=== PATIENT | female | born 1990 | race Caucasian/White ===

== ENCOUNTER 2020-04-14 00:01 | Inpatient (IN) | payer OTHER ==
[~2020-04-14] VITALS: Ht 170.2 cm; Wt 142.0 kg
--- OUTSIDE RECORDS SUMMARY | ~2020-04-14 | XMS | Encounter Summary ---
Demographics + + + | Address | [address] | | | [place] [address] | + + + | Home Phone | | + + + | Preferred Language | Unknown | + + + | Marital Status | Single | + + + | Nondenominational Affiliation | Unknown | + + + | Race | White | + + + | Ethnic Group | Not or | + + + Author + + + | Author | [facility] | | | and [place] | + + + | Organization | [facility] | | | and [place] | + + + | Address | Unknown | + + + | Phone | Unavailable | + + + Support + + + + + | Name | Relationship | Address | Phone | + + + + + | Lima Ireland | ECON | [address] | | | | | [place] | | | | | [address] | | + + + + + Care Team Providers + +------+ + | Care Orchestra Leader Name | Role | Phone | + +------+ + | Lana Hess PA-C | PCP | | + +------+ + Encounter Details +--------+ + + + + | Date | Type | Department | Care Team | Description | +--------+ + + + + | / | Abstract | [facility] | Vernon Garcia | Palpitations | | 2012 | | CARDIOLOGY [address] | MD Chaim [address] | (Primary Dx); | | | | [place], | [address] [place] | Chronic nausea; | | | | [place] [address] | [place] [address] | Chest pressure; SOB | | | | [phone] | [phone] | (shortness of | | | | | | breath); Abdominal | | | | | | pain; Depression | | | | | | with anxiety; | | | | | | Diarrhea; PVC's | | | | | | (premature | | | | | | ventricular | | | | | | contractions); Sinus | | | | | | arrhythmia | +--------+ + + + + Social History + + + +--------+------+ | Tobacco Use | Types | Packs/Day | Years | Date | | | | | Used | | + + + +--------+------+ | Current Every Day | Cigarettes | 0.5 | | | | Smoker | | | | | + + + +--------+------+ + +---+---+---+ | Smokeless Tobacco: | | | | | Never Used | | | | + +---+---+---+ + + +---------+ + | Alcohol Use | Drinks/Week | oz/Week | Comments | + + +---------+ + | Yes | | | social | + + +---------+ + + + + | Sex Assigned at | Date Recorded | | | | + + + | Not on file | | + + + documented as of this encounter Plan of Treatment Not on filedocumented as of this encounter Visit Diagnoses + + | Diagnosis | + + | Palpitations - Primary | + + | Chronic nausea Nausea alone | + + | Chest pressure Other chest pain | + + | SOB (shortness of breath) Shortness of breath | + + | Abdominal pain Abdominal pain, unspecified site | + + | Depression with anxiety Dysthymic disorder | + + | Diarrhea | + + | PVC's (premature ventricular contractions) Other premature beats | + + | Sinus arrhythmia Other specified cardiac dysrhythmias | + + documented in this encounter"
--- OUTSIDE RECORDS SUMMARY | ~2020-04-14 | XMS | Clinical Summary ---
Demographics + + + | Address | [address] | | | [place] [address] | + + + | Home Phone | | + + + | Preferred Language | Unknown | + + + | Marital Status | Single | + + + | Sikhism Affiliation | Unknown | + + + | Race | White | + + + | Ethnic Group | Not or | + + + Author + + + | Author | [facility] | | | and [place] | + + + | Organization | [facility] | | | and [...] [place] | | | | | [address] | | + + + + + Care Team Providers + +------+ + | Care Front Services Agent Name | Role | Phone | + +------+ + | Lana Hess PA-C | PCP | | + +------+ + Allergies + + + + + + | Active Allergy | Reactions | Severity | Noted | Comments | | | | | Date | | + + + + + + | Hydrocodone | Nausea And Vomiting | High | 09/18/19 | | | | | | 13 | | + + + + + + Medications + + + +---------+------+------+-------+ | Medication | Sig | Dispensed | Refills | Star | End | Statu | | | | | | t | Date | s | | | | | | Date | | | + + + +---------+------+------+-------+ | promethazine | Take 25 mg by mouth | | 0 | | | Activ | | (PHENERGAN) 25 mg | every 6 hours as | | | | | e | | tablet | needed. | | | | | | + + + +---------+------+------+-------+ | omeprazole | Take 20 mg by mouth | | 0 | | | Activ | | (PRILOSEC) 20 mg | every morning | | | | | e | | capsule | (before breakfast). | | | | | | + + + +---------+------+------+-------+ Active Problems + + + | Problem | Noted Date | + + + | Palpitations | 09/18/2012 | + + + | Chronic nausea | 09/18/2012 | + + + | Chest pressure | 09/18/2012 | + + + | SOB (shortness of breath) | 09/18/2012 | + + + | Abdominal pain | 09/18/2012 | + + + + + | Overview: Holter Monitor 08/30/12 | + + + + + | Depression with anxiety | 09/18/2012 | + + + | Diarrhea | 09/18/2012 | + + + | PVC's (premature ventricular contractions) | 09/18/2012 | + + + | Sinus arrhythmia | 09/18/2012 | + + + Family History + +------+--------+ + | Relation | Name | Status | Comments | + +------+--------+ + | Brother | | Alive | | + +------+--------+ + | Brother | | Alive | | + +------+--------+ + | Father | | Alive | DM | + +------+--------+ + | Mother | | Alive | | + +------+--------+ + | Sister | | Alive | | + +------+--------+ + | Sister | | Alive | | + +------+--------+ + Social History + + + +--------+------+ | Tobacco Use | Types | Packs/Day | Years | Date | | | | | Used | | + + + +--------+------+ | Current Every Day | Cigarettes | 0.5 | 3 | | | Smoker | | | | | + + + +--------+------+ + +---+---+---+ | Smokeless Tobacco: | | | | | Never Used | | | | + +---+---+---+ + + +---------+ + | Alcohol Use | Drinks/Week | oz/Week | Comments | + + +---------+ + | Yes | | | once a week, two | | | | | drinks | + + +---------+ + + + + | Sex Assigned at | Date Recorded | | | | + + + | Not on file | | + + + Last Filed Vital Signs + + + + + | Vital Sign | Reading | Time Taken | Comments | + + + + + | Blood Pressure | 110/72 | 11/21/2012 3:13 PM | | | | | PDT | | + + + + + | Pulse | 68 | 11/21/2012 3:13 PM | Regular | | | | PDT | | + + + + + | Temperature | - | - | | + + + + + | Respiratory Rate | 14 | 11/21/2012 3:13 PM | | | | | PDT | | + + + + + | Oxygen Saturation | - | - | | + + + + + | Inhaled Oxygen | - | - | | | Concentration | | | | + + + + + | Weight | 96.6 kg (213 lb) | 11/21/2012 3:13 PM | | | | | PDT | | + + + + + | Height | 170.2 cm (5' 7") | 11/21/2012 3:13 PM | | | | | PDT | | + + + + + | Body Mass Index | 33.36 | 11/21/2012 3:13 PM | | | | | PDT | | + + + + + Plan of Treatment + + +-------+ + | Health Maintenance | Due Date | Last | Comments | | | | Done | | + + +-------+ + | Vaccine: | | | | | Dtap/Tdap/Td (1 - | 1 | | | | Tdap) | | | | + + +-------+ + | Cervical Cancer | | | | | Screening (Pap) | 3 | | | + + +-------+ + | Vaccine: Influenza | | | | | (#1) | 0 | | | + + +-------+ + Results Not on filefrom Last 3 Months Insurance + +--------+ +--------+-------+---------+------+ | Payer | Benefi | Subscriber | Effect | Phone | Address | Type | | | t Plan | ID | shahnaz | | | | | | / | | Dates | | | | | | Group | | | | | | + +--------+ +--------+-------+---------+------+ | [employer] | FIRST | [id number] | | | | PPO | | | CHOICE | | 012-Pr | | | | | | OTHER | | esent | | | | + +--------+ +--------+-------+---------+------+ + +--------+ +--------+ + + | Guarantor Name | Accoun | Relation to | Date | Phone | Billing Address | | | t Type | Patient | of | | | | | | | | | | + +--------+ +--------+ + + | Mariam Ireland | Person | Self | [birth year] | [address] | | | al/Fam | | 1989 | [phone] | [address], | | | [place] | | | [address] (Home) | [place] [address] | + +--------+ +--------+ + + | Mariam Ireland | Person | Self | [birth year] | | [address] | | | al/Fam | | 1989 | [address], | | | [place] | | | [address] (Home) | [place] [address] | | | | | | [phone] | | | | | | | 0 (Work) | | + +--------+ +--------+ + + Advance Directives + + + + + | Type | Date Recorded | Patient | Explanation | | | | [employer] | | + + + + + | Power of | | | | | Spot Facer | | | | + + + + + | Advance | | | | | Directive | | | | + + + + +
--- OUTSIDE RECORDS SUMMARY | ~2020-04-14 | XMS | Encounter Summary ---
Demographics + + + | Address | [address] | | | [place] [address] | + + + | Home Phone | | + + + | Preferred Language | Unknown | + + + | Marital Status | Single | + + + | Advent Affiliation | Unknown | + + + | Race | White | + + + | Ethnic Group | Not or | + + + Author + + + | Author | [facility] | | | and [place] | + + + | Organization | [facility] | | | and [...] [place] | | | | | [address] | | + + + + + Care Team Providers + +------+ + | Care Barrel Lathe Operator Inside Name | Role | Phone | + +------+ + | Lana Hess PA-C | PCP | | + +------+ + Reason for Referral Diagnostic/Screening (Routine) +--------+--------+ + + + + | Status | Reason | Specialty | Diagnoses / | Referred By | Referred To | | | | | Procedures | Contact | Contact | +--------+--------+ + + + + | Closed | | Radiology | Diagnoses | [place], | [facility] | | | | | | Vernon | Imaging [address] | | | | | Palpitations | MD Chaim | [address] | | | | | Other | [address] | [address] [place] | | | | | chest pain | St [place] | [place], [place] | | | | | Procedures | [place] | [address] | | | | | ECHO | [address] | Phone: | | | | | Complete | Phone: | | | | | | | [phone] | Fax: | | | | | | Fax: | | | | | | | [phone] | | +--------+--------+ + + + + Encounter Details +--------+ + + + + | Date | Type | Department | Care Team | Description | +--------+ + + + + | 10/03/ | Hospital | [facility] | Vernon Garcia | Palpitations; | | 2012 - | Encounter | MED CTR XRAY [address] | MD Chaim [address] | Other chest pain | | | | [place] | [address] [place] | | | 10/05/ | | [place] [address] | [place] [address] | | | 2012 | | [phone] | [phone] | | | | | | | | +--------+ + + + + Social [...] + + documented as of this encounter Medications at Time of Discharge + + + +---------+--------+ + | Medication | Sig | Dispensed | Refills | Start | End Date | | | | | | Date | | + + + +---------+--------+ + | promethazine | Take 25 mg by mouth | | 0 | | | | (PHENERGAN) 25 mg | every 6 hours as | | | | | | tablet | needed. | | | | | + + + +---------+--------+ + documented as of this encounter Plan of Treatment Not on filedocumented as of this encounter Procedures + +--------+ + + + | Procedure Name | Priori | Date/Time | Associated Diagnosis | Comments | | | ty | | | | + +--------+ + + + | ECHO COMPLETE | Routin | 10/03/2012 | Palpitations | Results for this | | | e | 11:49 AM | Other chest pain | procedure are in the | | | | PST | | results section. | + +--------+ + + + documented in this encounter Results ECHO Complete (10/03/2012 11:49 AM PST) + + | Specimen | + + | | + + + + + | Narrative | Performed At | + + + | [facility] | [place] | | Department [address] [facility] [address] | [facility] | | [ rep [address]] [ rep [facility] | | [facility]] Signed | - IMAGING | | | | | Patient Name: ASHLEE IRELAND Physician: | | | TAYA : 1990 Age: 22 Sex: F Unit #: [id number] | | | Exam Date: 10/03/12 Location: [facility] | | | Report #: [id number] Page: | | | %(RAD)RES..mtdd.print.filter("pg") of %(RAD) | | | RES..mtdd.print.filter("tpg") | | | | | | Accession Number: [id number] | | | E C H O C A R D I O G R A P H Y R E P O R T | | | HEIGHT: 5'7" WEIGHT: 205# | | | LENS MAKER: AP YANG DR: CASI BEAN DR: | | | CASI DIAGNOSIS: PALPITATIONS AND CHEST PAIN | | | | | | M E A S U R E M E N T S | | | Aortic Root: 31 mm LV | | | Diameter-diastole: 49 mm Aortic Cusp Sep: 22 mm | | | LV Diameter--systole: 33 mm LA: | | | 30 mm Fractional Shortenin % | | | IVS--diastole: 8 mm PFV Aortic Valve: | | | IVS--systole: 13 mm MPG Mitral | | | Valve: mmHg LVPW--diastole: 9 mm | | | PFV TR Jet: 2.06 m/s LVPW--systole: | | | 15 mm RA/RV PP mmHg | | | | | | | | | ECHOCARDIOGRAM REPORT, 10/03/2012 REFERRING: S. | | | Chaim Garcia MD INDICATION: CHEST PAIN, PALPITATIONS. | | | TECHNICAL: Quality of study is good. This is a complete | | | transthoracic echocardiogram including 2D, M- mode, Doppler, and | | | color flow Doppler analysis. HEMODYNAMICS: Patient was in | | | underlying sinus rhythm throughout the procedure with a ventricular | | | rate in the 70s. Blood pressure is 111/66 at the time of the | | | study. RESULTS: CHAMBERS: The left ventricle | | | is of normal end diastolic and end systolic dimensions with normal | | | wall thickness and regional wall motion. LVEF is calculated at 59%. | | | Bilateral atria are of normal size. Right ventricle is of normal | | | size and systolic function with normal wall thickness. | | | VALVES: Aortic valve is a normal trileaflet valve with good opening. | | | There is no stenosis or insufficiency noted. Mitral valve is | | | normal without any thickening or prolapse. There is no | | | regurgitation seen. Tricuspid valve is normal with trace | | | insufficiency and a peak velocity of 2 meters per second consistent | | | with normal right sided pressures. Pulmonic valve is normal. | | | DIASTOLOGY: Diastolic parameters are within normal limits. | | | MISCELLANEOUS: Aortic root measures at 31 mm. Pericardium is | | | normal without any pericardial effusion. IVC is normal. | | | IMPRESSION: 1. NORMAL LEFT VENTRICULAR SIZE AND SYSTOLIC FUNCTION | | | WITH LVEF OF 59%. 2. NO SIGNIFICANT VALVULAR DISEASE NOTED. | | | 3. NORMAL RIGHT SIDED PRESSURES. 4. NORMAL LEFT | | | VENTRICULAR DIASTOLIC FUNCTION. Dictated Date/Time: | | | 10/03/2012 11:49 Transcribed Date/Time: 10/03/2012 12:03 | | | Consumer Analyst: <<Signature on File>> | | | S | | | Chaim Garcia MD10/03/12 2160 <Electronically signed by S S. | | | Casi MOCK> S Chaim Garcia MD 10/03/12 4509 | | | Consumer Analyst: Jia Sarsolktcmisu76/20/13 1203 S | | | Chaim Garcia MD | | + + + + + + + + | Performing | Address | City/State/Zipcode | Phone Number | | Organization | | | | + + + + + | [facility] | [address] | [place] | [phone] | | [facility] | | [address] | | | - IMAGING | | | | + + + + + documented in this encounter Visit Diagnoses + + | Diagnosis | + + | Palpitations | + + | Other chest pain | + + documented in this encounter
--- OUTSIDE RECORDS SUMMARY | ~2020-04-14 | XMS | Encounter Summary ---
Demographics + + + | Address | [address] | | | [place] [address] | + + + | Home Phone | | + + + | Preferred Language | Unknown | + + + | Marital Status | Single | + + + | Tenriism Affiliation | Unknown | + + + | Race | White | + + + | Ethnic Group | Not or | + + + Author + + + | Author | [facility] | | | and [place] | + + + | Organization | [facility] | | | [...] [place] | | | | | [address] | | + + + + + Care Team Providers + +------+ + | Care Water Filter Cleaner Name | Role | Phone | + +------+ + | Lana Hess PA-C | PCP | | + +------+ + Reason for Visit +---------+ + | Reason | Comments | +---------+ + | Results | ECHO, EVENT MONITOR, TREADMILL TEST | +---------+ + Encounter Details +--------+---------+ + + + | Date | Type | Department | Care Team | Description | +--------+---------+ + + + | 11/21/ | Office | [facility] | Vernon Garcia | Palpitations | | 2012 | Visit | CARDIOLOGY [address] | MD Chaim [address] | (Primary Dx); | | | | [place], | [address] [place] | Tobacco use | | | | [place] [address] | [facility] [place] [address] | disorder; PVC's | | | | [phone] | [phone] | (premature | | | | | | ventricular | | | | | | contractions) | +--------+---------+ + + + Social History + + [...] + + documented as of this encounter Last Filed Vital Signs + + + [...] + + + documented in this encounter Progress Notes Vernon Garcia MD - 11/21/2012 9:09 PM PDTFormatting of this note might be differe nt from the original. Subjective: Patient ID: Mariam Irleand is a 22 y.o. female. HPI Patient is a 22-year-old female with recent complaints of 4-6 weeks of palpitations, who pr esents for a followup visit to discuss the results of her recent workup. Patient states that she continues to have symptoms of palpitations, that she notices more when she is working a nd attributes it to stress. She denies any severe lightheadedness or syncope, but is felt fa tigued recently, sleeping for extended periods when she is not working. She does admit to regular use of energy drinks, which she states recently she has cut back. She also has been smoking one half to one pack per day for over 4 years, and has not tried to quit. She states that she lives with her mother and brother both of whom also smoke makin g it difficult to quit. She denies any excess use of alcohol or any history of previously di agnosed arrhythmias or any cardiac problems. There is no history of arrhythmia or sudden michelle th in the extended family. She does not exercise with any regularity, only walking her dog occasionally. Past Medical History Diagnosis Date Palpitations 09/18/2012 Chronic nausea 09/18/2012 Chest pressure 09/18/2012 SOB (shortness of breath) 09/18/2012 Abdominal pain 09/18/2012 Holter Monitor 08/30/12 Depression with anxiety 09/18/2012 Diarrhea 09/18/2012 Sinus arrhythmia 09/18/2012 Patient Active Problem List Diagnoses Date Noted POA Abdominal pain 09/18/2012 Priority: High Palpitations 09/18/2012 Chronic nausea 09/18/2012 Chest pressure 09/18/2012 SOB (shortness of breath) 09/18/2012 Depression with anxiety 09/18/2012 Diarrhea 09/18/2012 PVC's (premature ventricular contractions) 09/18/2012 Sinus arrhythmia 09/18/2012 Past Surgical History Procedure Date Appendectomy 2002 Tonsillectomy 1999 History reviewed. No pertinent family history. History Social History Marital Status: Single Spouse Name: N/A Number of Children: 0 Years of Education: N/A Occupational History [employer] Social History Main Topics Smoking status: Current Everyday Smoker -- 0.5 packs/day for 3 years Types: Cigarettes Smokeless tobacco: Never Used Alcohol Use: Yes once a week, two drinks Drug Use: 2 per week Special: Marijuana Sexually Active: None Other Topics Concern None Social History Narrative Exercise: walk , yoga (minimal)Caffeine: 1 energy drinkLiving Situation: mother and 2 sibl ings Current Outpatient Prescriptions on File Prior to Visit Medication Sig Dispense Refill promethazine (PHENERGAN) 25 mg tablet Take 25 mg by mouth every 6 hours as needed. Allergies Allergen Reactions Hydrocodone Nausea And Vomiting Review of Systems Constitutional: Positive for fatigue. Respiratory: Positive for chest tightness and shortness of breath (rest and exertion). Cardiovascular: Positive for chest pain and palpitations. Gastrointestinal: Positive for nausea and abdominal pain. Neurological: Positive for tremors, light-headedness and numbness (feet). Psychiatric/Behavioral: Positive for disturbed wake/sleep cycle and decreased concentration . All other systems reviewed and are negative. BP 110/72 | Pulse 68 | Resp 14 | Ht 1.702 m (5' 7") | Wt 96.616 kg (213 lb) | BMI 33.36 kg/ m2 | ? No Objective: Physical Exam Constitutional: She is oriented to person, place, and time. She appears well-developed and well-nourished. HENT: Head: Normocephalic and atraumatic. Eyes: Pupils are equal, round, and reactive to light. Neck: Neck supple. No JVD present. No thyromegaly present. Cardiovascular: Normal rate, regular rhythm, S1 normal, S2 normal, normal heart sounds, int act distal pulses and normal pulses. PMI is not displaced. Exam reveals no S3, no S4 and n o friction rub. No murmur heard. Pulmonary/Chest: Effort normal and breath sounds normal. No accessory muscle usage. No resp iratory distress. She exhibits no tenderness. Abdominal: Soft. Normal appearance and bowel sounds are normal. She exhibits no distension and no abdominal bruit. There is no hepatosplenomegaly. There is no tenderness. obese Musculoskeletal: Normal range of motion. Lymphadenopathy: She has no cervical adenopathy. Neurological: She is alert and oriented to person, place, and time. Skin: Skin is warm and dry. No rash noted. Psychiatric: She has a normal mood and affect. Her behavior is normal. Electrocardiogram reviewed by me shows sinus rhythm, heart rate 61, no significant abnormal ities. Holter monitor [facility] - report describes occasional PACs and PVCs without any sustained runs and no symptom correlation. Report does not mention heart rate range and trevor iability. TSH, chemistry panel, CBC, ESR, lipase, amylase, H. Pylori test, and hCG all WNL [facility] monitor reviewed and interpreted by me 2012 notable for symptom correlation with isolated PVCs and PACs without any evidence of significant or sustained dysrhythmias. Treadmill stress examination interpreted and reviewed by me notable for exercise time of 9 minutes on a Ken protocol with appropriate hemodynamic response and no significant arrhyth mias noted except for rare isolated PVCs. Echocardiogram September 2012 interpreted and reviewed by me shows LVEF 59%, no significant valvular disease, normal right-sided pressures, normal LV diastolic function, normal study. Assessment: 1. Palpitations - patient's symptoms thus far correspond to isolated PVCs, only a few of wh ich appear to be sensed. There has been no recent significant sustained dysrhythmias in spit e of extensive noninvasive testing and monitoring, nor any evidence of structural heart dise ase. There is similarly no evidence of other triggering factors such as hyperthyroidism or a nemia. I've asked the patient to minimize use of her energy drinks and other caffeinated azam erages, and also minimize alcohol use while improving stress management and stopping smoking . 2. Tobacco cessation - this was discussed at length, greater than 5 minutes, with the patie nt as well as her mother who was present for the interview. They both smoke, as well as the patient's brother with whom she lives. She has never quit before, but appears motivated, nixon ecially given that she has recently cut down her smoking. Plan: 1. No further cardiovascular diagnostics. 2. No empiric medical therapy at this point barring significant clinical changes. 3. followup with us in an as needed. documented in t his encounter Plan of Treatment Not on filedocumented as of this encounter Visit Diagnoses + + | Diagnosis | + + | Palpitations - Primary | + + | Tobacco use disorder | + + | PVC's (premature ventricular contractions) Other premature beats | + + documented in this encounter
--- OUTSIDE RECORDS SUMMARY | ~2020-04-14 | XMS | Clinical Summary ---
Demographics + + + | Address | [address] | | | [place] [address] | + + + | Home Phone | | + + + | Preferred Language | Unknown | + + + | Marital Status | Single | + + + | Baptism Affiliation | Unknown | + + + | Race | White | + + + | Ethnic Group | Not or | + + + Author + + + | Author | [facility] | | | and [place] | + + + | Organization | [facility] | | | [...] [place] | | | | | [address] | | + + + + + Care Team Providers + +------+ + | Care Regional Forester Name | Role | Phone | + [...] +--------+-------+---------+------+ | [employer] | FIRST | [id number] | | | | PPO | | [...] | | al/Fam | | 1989 | [phone] | [address], | | | [place] | | | [address] (Home) | [place] [address] | + +--------+ +--------+ + + | Mariam Ireland | Person | Self | [birth year] | [address] | | | al/Fam | | 1989 | [address], | | | [place] | | | [address] (Home) | [place] [address] | | | | | | [phone] | | | | | | | 0 (Work) | | + +--------+ +--------+ + + Advance Directives + + + + + | Type | Date Recorded | Patient | Explanation | | | | Cooler Man | | + + + + + | Power of | | | | | Shelter Case Manager | | | | + + + + + | Advance | | | | | Directive | | | | + + + + +
--- OUTSIDE RECORDS SUMMARY | ~2020-04-14 | XMS | Encounter Summary ---
Demographics + + + | Address | [address] | | | [place] [address] | + + + | Home Phone | | + + + | Preferred Language | Unknown | + + + | Marital Status | Single | + + + | Latter Day Affiliation | Unknown | + + + | Race | White | + + + | Ethnic Group | Not or | + + + Author + + + | Author | [facility] | | | and [place] | + + + | Organization | [facility] | | | [...] [place] | | | | | [address] | | + + + + + Care Team Providers + +------+ + | Care Wire Weaver Cloth Name | Role | Phone | + [...] | (Primary Dx); | | | | [employer], | [address] [place] | Chronic nausea; | | | | [place] [address] | [place] [address] | Chest pressure; SOB | | | | [phone] | [phone] | (shortness of | | | | [...]
--- OUTSIDE RECORDS SUMMARY | ~2020-04-14 | XMS | Encounter Summary ---
Demographics + + + | Address | [address] | | | [place] [address] | + + + | Home Phone | | + + + | Preferred Language | Unknown | + + + | Marital Status | Single | + + + | Druze Affiliation | Unknown | + + + | Race | White | + + + | Ethnic Group | Not or | + + + Author + + + | Author | [facility] | | | and [place] | + + + | Organization | [facility] | | | [...] [place] | | | | | [address] | | + + + + + Care Team Providers + +------+ + | Care Estimator Lumber Name | Role | Phone | + +------+ + | Lana Hess PA-C | PCP | | + +------+ + Encounter Details +--------+ + + + + | Date | Type | Department | Care Team | Description | +--------+ + + + + | 03/01/ | Abstract | [facility] [place] | Vernon Garcia | | | 2012 | | CARDIOLOGY [address] | MD Chaim [address] | | | | | [place], | [address] [place] | | | | | [place] [address] | [place] [address] | | | | | [phone] | [phone] | | | | | | | [...] | + +--------+ + + + | COMPREHENSIVE | Routin | 08/30/2012 | | Results for this | | METABOLIC PANEL | e | | | procedure are in the | | | | | | results section. | + +--------+ + + + documented in this encounter Results Comprehensive Metabolic Panel (08/30/2012) + +-------+ + + + | Component | Value | Ref Range | Performed | Pathologist | | | | | At | Signature | + +-------+ + + + | Na | 138 | mmol/L | [facility] | | [facility] - | | | | | | LABORATORY | | + +-------+ + + + | K | 4.3 | mmol/L | [facility] | [facility] | | | | | | [facility] - | | | | | | LABORATORY | | + +-------+ + + + | Chloride | 106 | | [facility] | | | | [facility] | | | | | | [facility] | | | | | | C[facility] - | | | | | | LABORATORY | | + +-------+ + + + | CO2 | 25 | mmol/L | [facility] | | | | | [facility] | | | | | | MEDICAL | | | | | | CENTER - | | | | | | LABORATORY | | + +-------+ + + + | Anion Gap | 11 | mmol/L | [facility] | | | | | [facility] | | | | | | [facility] | | | | | | [facility] - | | | | | | LABORATORY | | + +-------+ + + + | Glucose | 93 | mg/dL | [facility] | | | | [facility] | | | | | | [facility] | | | | | | CENTER - | | | | | | LABORATORY | | + +-------+ + + + | BUN | 12 | mg/dL | [facility] | | | | | | [facility] | | | | | | [facility] | | | | | | [facility] - | | | | | | LABORATORY | | + +-------+ + + + | Creatine, | 0.86 | | [facility] | | | Serum | | | [facility] | | | | | | MEDICAL | | | | | | CENTER - | | | | | | LABORATORY | | + +-------+ + + + | GFR | >60 | | [facility] | | | ESTIMATE | | | [facility] | | | (REF) | | | MEDICAL | | | | | | CENTER - | | | | | | LABORATORY | | + +-------+ + + + | Bun/Creatin | 14.0 | | [facility] | | | ine | | | [facility] | | | | | | [facility] | | | | | | CENTER - | | | | | | LABORATORY | | + +-------+ + + + | Calcium | 9.0 | mg/dL | [facility] | | | | | | [facility] | | | | | | [facility] | | | | | | CENTER - | | | | | | LABORATORY | | + +-------+ + + + | AST | 19 | 10 - 45 U/L | [facility] | | | | | | [facility] | | | | | | [facility]ICAL | | | | | | CENTER - | | | | | | LABORATORY | | + +-------+ + + + | ALT | 17 | U/L | [facility] | | | | | | [facility] | | | | | | [facility] | | | | | | CENTER - | | | | | | LABORATORY | | + +-------+ + + + | Alkaline | 37 | 35 - 115 U/L | [facility] | | | Phosphatase | | | [facility] | | | | | | [facility]ICAL | | | | | | CENTER - | | | | | | LABORATORY | | + +-------+ + + + | Bilirubin | 0.6 | 0.1 - 1.5 mg/dL | [facility] | | | Total | | | [facility] | | | | | | MEDICAL | | | | | | CENTER - | | | | | | LABORATORY | | + +-------+ + + + | Total | 6.7 | 6.1 - 8.4 g/dL | [facility] | | | Protein | | | [facility] | | | | | | MEDICAL | | | | | | CENTER - | | | | | | LABORATORY | | + +-------+ + + + | Albumin | 4.4 | 3.5 - 5.0 g/dL | [facility] | | | | | [facility] | [facility] | | [facility] | | | | | | [facility] - | | | | | | LABORATORY | | + +-------+ + + + | Globulin | 2.3 | | [facility] | | | | | | [facility] | | | | | | [facility]ICAL | | | | | | CENTER - | | | | | | LABORATORY | | + +-------+ + + + | Albumin/Jasmyn | 1.9 | | [facility] | | | bulin Ratio | | | [facility] | | | | | | [facility] | | | | | | CENTER - | | | | | | LABORATORY | | + +-------+ + + + | WBC | 7.0 | 10*3/uL | [facility] | | | | | | [facility] | | | | | | [facility] | | | | | | CENTER - | | | | | | LABORATORY | | + +-------+ + + + | RBC | 4.52 | 10*6/uL | [facility] | | | | | | [facility] | | | | | | [facility]ICAL | | | | | | CENTER - | | | | | | LABORATORY | | + +-------+ + + + | Hemoglobin | 13.8 | 11.6 - 15.5 | [facility] | | | | | gm/dL | [facility] | | | | | | [facility] | | | | | | CENTER - | | | | | | LABORATORY | | + +-------+ + + + | Hct | 41.0 | 35.0 - 46.0 % | [facility] | | | | | | [facility] | | | | | | [facility] | | | | | | CENTER - | | | | | | LABORATORY | | + +-------+ + + + | MCV | 90.7 | 80.0 - 98.0 fL | [facility] | | | | | | [facility] | | | | | | MEDICAL | | | | | | CENTER - | | | | | | LABORATORY | | + +-------+ + + + | RDW-CV | 11.9 | 11.0 - 15.0 % | [facility] | | | | | | [facility] | | | | | | MEDICAL | | | | | | CENTER - | | | | | | LABORATORY | | + +-------+ + + + | MCH | 31.0 | 26.0 - 33.0 pg | [facility] | | | | | | [facility] | | | | | | MEDICAL | | | | | | CENTER - | | | | | | LABORATORY | | + +-------+ + + + | MCHC | 34.0 | 30.0 - 36.0 % | [facility] | | | | | | [facility] | | | | | | MEDICAL | | | | | | CENTER - | | | | | | LABORATORY | | + +-------+ + + + | Platelet | 190 | 150 - 400 | [facility] | | | Count | | 10*3/uL | [facility] | | | | | | MEDICAL | | | | | | CENTER - | | | | | | LABORATORY | | + +-------+ + + + | % Segmented | 52.3 | 40.0 - 80.0 % | [facility] | | | | | | [facility] | | | Neutrophils | | | MEDICAL | | | | | | CENTER - | | | | | | LABORATORY | | + +-------+ + + + | % | 36.0 | 15.0 - 45.0 % | [facility] | | | Lymphocytes | | | [facility] | | | | | | MEDICAL | | | | | | CENTER - | | | | | | LABORATORY | | + +-------+ + + + | % Monocytes | 6.7 | 0.0 - 12.0 % | [facility] | | | | | | [facility] | | | | | | MEDICAL | | | | | | CENTER - | | | | | | LABORATORY | | + +-------+ + + + | % | 5.0 | 0.0 - 7.0 % | [facility] | | | Eosinophils | | | [facility] | | | | | | MEDICAL | | | | | | CENTER - | | | | | | LABORATORY | | + +-------+ + + + | % Basophils | 0.0 | 1.0 % | [facility] | | | | | | [facility] | | | | | | MEDICAL | | | | | | CENTER - | | | | | | LABORATORY | | + +-------+ + + + + + | Specimen | + + | Blood specimen | | (specimen) | + + + + + + + | Performing | Address | City/State/Zipcode | Phone Number | | Organization | | | | + + + + + | [facility] | [address] | [place] | [phone] | | [facility] | | [address] | | | - LABORATORY | | | | + + + + + | [facility] | [address] | [place] | | | [facility] | | [phone] [place] [address] | | | - LABORATORY | | | | + + + + + documented in this encounter Visit Diagnoses Not on filedocumented in this encounter"
--- OUTSIDE RECORDS SUMMARY | ~2020-04-14 | XMS | Encounter Summary ---
Demographics + + + | Address | [address] | | | [place] [address] | + + + | Home Phone [...] Author + + + | Author | [facility] | | | and [place] | + + + | Organization | [facility] | | | and [...] [place] | | | | | [address] | | + + + + + Care Team Providers + +------+ + | Care Diesel Instructor Name | Role | Phone | + [...] Closed | | Radiology | Diagnoses | [facility] [place] | | | | | | Vernon | Imaging [address] | | | | | Palpitations | MD Chaim | [address] | | | | | Other | [address] | [address] [place] | | | | | chest pain | St [place] | [place], [place] | | | | | Procedures | [place], [place] | [address] | | | | | ECHO | [address] | Phone: | | | | | Complete | Phone: | | | | | | | [phone] | Fax: | | | | | | Fax: | | | | | | | [phone] | | +--------+--------+ + + + + Reason for Visit + + + | Reason | Comments | + + + | Palpitations | Initial Consultation | + + + Encounter Details +--------+---------+ + + + | Date | Type | Department | Care Team | Description | +--------+---------+ + + + | 09/20/ | Office | [facility] | Vernon Garcia | Palpitations | | 2012 | Visit | CARDIOLOGY [address] | MD Chaim [address] | (Primary Dx); Other | | | | [place], | [address] [place] | chest pain; Tobacco | | | | [place] [address] | [place] [address] | use disorder | | | | [phone] | [phone] | | | | | | | | +--------+---------+ + + + Social History [...] + + + | Blood Pressure | 110/82 | 09/20/2012 12:44 PM | right arm 112/84 | | | | PST | | + + + + + | Pulse | 72 | 09/20/2012 12:44 PM | regular | | | | PST | | + + + + + | Temperature | - | - | | + + + + + | Respiratory Rate | 14 | 09/20/2012 12:44 PM | | | | | PST | | + + + + + | Oxygen Saturation | - | - | | + + + + + | Inhaled Oxygen | - | - | | | Concentration | | | | + + + + + | Weight | 95.3 kg (210 lb) | 09/20/2012 12:44 PM | | | | | PST | | + + + + + | Height | 170.2 cm (5' 7") | 09/20/2012 12:44 PM | | | | | PST | | + + + + + | Body Mass Index | 32.89 | 09/20/2012 12:44 PM | | | | | PST | | + + + + + documented in this encounter Patient Instructions Patient Instructions Nai Gregg RN - 09/20/2012 1:39 PM PST1. Treadmill Test 2. Echo 3. Gabe of heart event monitor 4. Return to clinic after the tests documented in this encounter Progress Notes Vernon Garcia MD - 09/20/2012 12:36 PM PSTFormatting of this note might be differe nt from the original. Subjective: Patient ID: Ashlee Ireland is a 22 y.o. female. HPI Patient is a 22-year-old female with complaints of 4-6 weeks of palpitations. Patient descr ibes both sensation of skipped heartbeats as well as periods of sustained rapid heartbeat, h er mother, who also works as a nurse, has measured. She denies any severe lightheadedness or syncope, but is felt fatigued recently, sleeping for extended periods when she is not worki [place]. She also admits to chronic problems with nausea and borderline diarrhea/loose bowels, bu t denies problems with vomiting. She denies use of any hgfw-dto-tkpdvit supplements for weig ht loss, including any diuretics or amphetamine containing agents. She does admit to regular use of energy drinks, which she states recently she has cut back. She also has been smoking one half to one pack per day for over 4 years, and has not tried to quit. She denies any ex cess use of alcohol or any history of previously diagnosed arrhythmias or any cardiac proble ms. There is no history of arrhythmia or sudden in the extended family. She does not exercise with any regularity, only walking her dog occasionally began yoga cla ss recently which leaves her fatigued. She had one or 2 episodes of syncope years ago in [facility] which was attributed to dehydration, and was not associated with activity or exercise. Past Medical History Diagnosis Date Palpitations 09/18/2012 [...] Surgical History Procedure Date Appendectomy 2002 Tonsillectomy 1998 No family history on file. 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 BP 110/82 | Pulse 72 | Resp 14 | Ht 1.702 m (5' 7") | Wt 95.255 kg (210 lb) | BMI 32.89 kg/ m2 | LMP 09/20/2012 | ? No Objective: Physical Exam Constitutional: [...] 61, no significant abnormal ities. Holter monitor [facility] - report describes occasional PACs and PVCs without any sustained runs and no symptom correlation. Report does not mention heart rate range and trevor iability and detailed tracings currently unavailable for review. TSH, chemistry panel, CBC, ESR, lipase, amylase, H. Pylori test, and hCG all WNL Assessment: 1. Palpitations - patient's symptoms suggest to different mechanisms, which may both be pre sent, including frequent ectopic beats, as well as paroxysmal tachycardia. We will attempt t o obtain detailed tracings of the patient's recent Holter monitor, and we'll schedule her to undergo [facility] event monitor as well. I've encouraged the patient to obtain a blood pressure cuff, and attempt to maintain a log of her vitals for future review. For now we wi ll not recommend any empiric medical therapy pending further data. We will also schedule her to undergo a treadmill stress examination, primarily to assess he r heart rate response to exercise. We will also scheduled to undergo a transthoracic echocar diogram to assess for any significant structural heart disease. I've asked the patient to minimize use of her energy drinks and other caffeinated beverages . 2. Tobacco cessation - this was discussed at length, greater than 10 minutes, with the giovanny ent as well as her mother who was present for the interview. They both smoke, as well as the patient's brother with whom she lives. She has never quit before, but appears motivated, es pecially given that she has recently cut down her smoking. Plan: 1. ItsPlatonic event monitor. 2. Echocardiogram. 3. Treadmill stress examination. 4. Obtain previous Holter monitor detailed tracings. 5. followup visit within one month. documented in t his encounter Plan of Treatment + +------+--------+ + + | Name | Type | Priori | Associated Diagnoses | Order Schedule | | | | ty | | | + +------+--------+ + + | ECG 12 lead | ECG | Routin | Palpitations | Ordered: 09/20/2012 | | | | e | | | + +------+--------+ + + | Stress ECG | ECG | Routin | Palpitations | 1 Occurrences | | | | e | Other chest pain | starting 09/20/2012 | | | | | | until 09/20/2013 | + +------+--------+ + + | EVENT MONITOR 4 WEEK | ECG | Routin | Palpitations | 1 Occurrences | | | | e | Other chest pain | starting 09/20/2012 | | | | | | until 09/20/2013 | + +------+--------+ + + documented as of this encounter Results ECHO Complete (10/03/2012 11:49 AM PST) + + | Specimen | + + | | + + + + + | Narrative | Performed At | + + + | [facility] | [place] | | Department [facility] [place] | [facility] | | [ rep [address]] [ rep [facility] | | st zip] Signed | - IMAGING | | | | | Patient Name: ASHLEE IRELAND Physician: | | | ERIBERTO. : 1990 Age: 22 Sex: F Unit #: [id number] | | | Exam Date: 10/03/12 [place] [facility] [place] | | Report #: [id number] Page: | | | %(RAD)RES..mtdd.print.filter("pg") of %(RAD) | | | RES..mtdd.print.filter("tpg") | | | | | | Accession Number: [id number] | | | E C H O C A R D I O G R A P H Y R E P O R T | | | HEIGHT: 5'7" WEIGHT: 205# | | | ANIMAL HUSBANDRY TECHNICIAN: AP REFERRING DR: JOSE BEAN DR: | | | JOSE DIAGNOSIS: PALPITATIONS AND CHEST PAIN | | [...] Transcribed Date/Time: 10/03/2012 12:03 | | | Commercial Collections Driver: SOULEYMANE <<Signature on File>> | | | S | | | Chaim Garcia MD10/03/12 1643 <Electronically signed by Jorge L Coats. | | | Jose MOCK> S Chaim Garcia MD 10/03/12 1149 | | | Commercial Collections Driver: Nasseo Eguyjzakiubyl64/20/13 [address] | | | Chaim Garcia MD | | + + + + + + + + | Performing | Address | City/State/Zipcode | Phone Number | | Organization | | | | + + + + + | [facility] | [address] | [place] | [phone] | | [facility] | | [address] | | | - IMAGING | | | | + + + + + documented in this encounter Visit Diagnoses + + | Diagnosis | + + | Palpitations - Primary | + + | Other chest pain | + + | Tobacco use disorder | + + documented in this encounter
--- OUTSIDE RECORDS SUMMARY | ~2020-04-14 | XMS | Encounter Summary ---
Demographics + + + | Address | [address] | | | [place] [address] | + + + | Home Phone | | + + + | Preferred Language | Unknown | + + + | Marital Status | Single | + + + | Rastafarian Affiliation | Unknown | + + + | Race | White | + + + | Ethnic Group | Not or | + + + Author + + + | Author | [facility] | | | and [place] | + + + | Organization | [facility] | | [...] [place] | | | | | [address] | | + + + + + Care Team Providers + +------+ + | Care Sap Treasury Consultant Name | Role | Phone | + [...] + + | 11/21/ | Office | [facility] | Vernon Garcia | Palpitations | | 2012 | Visit | CARDIOLOGY [address] | MD Chaim [address] | (Primary Dx); | | | | [place], | [address] [place] | Tobacco use | | | | [place] [address] | [facility] [address] | disorder; PVC's | | | | [phone] | [phone] | (premature | | | | | [...] from the original. Subjective: Patient ID: Mariam Ireland is a 22 y.o. female. 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 Holter monitor [facility] - report describes occasional PACs and PVCs without any sustained runs and no symptom correlation. Report does not mention heart rate range and trevor iability. TSH, chemistry panel, CBC, ESR, lipase, amylase, H. Pylori test, and hCG all WNL [facility] monitor reviewed and interpreted by me 2012 [...]
--- OUTSIDE RECORDS SUMMARY | ~2020-04-14 | XMS | Encounter Summary ---
Demographics + + + | Address | [address] | | | [place] [address] | + + + | Home Phone [...] Author + + + | Author | [facility] | | | and [place] | + + + | Organization | [facility] | | | [...] [place] | | | | | [address] | | + + + + + Care Team Providers + +------+ + | Care Strategic Debriefing Officer Name | Role | Phone | + [...] | Palpitations | MD Chaim | [address] | | | | | Other | [address] | [address] [place] | | | | | chest pain | St [place] | [place], [place] | | | | | Procedures | [place], [place] | [address] | | | | | ECHO | [address] | Phone: | | | | | Complete | Phone: | | | | | | | [phone] | Fax: | | | | | | Fax: | | | | | | | [phone] | | +--------+--------+ + + + + Encounter Details +--------+ + + + + | Date | Type | Department | Care Team | Description | +--------+ + + + + | 10/03/ | Hospital | [facility] | Vernon Garcia | Palpitations; | | 2012 - | Encounter | MED CTR XRAY [address] | MD Chaim [address] | Other chest pain | | | | [place] | [address] [place] | | | 10/05/ | | [place] [address] | [place] [address] | | | 2012 | | [phone] | [phone] | | | | | | | [...] Performed At | + + + | [facility] | [place] | | Department [address] [facility] | [facility] | | [ rep [address]] [ rep [facility] | | st [facility]] Signed | - IMAGING | | | | | Patient Name: ASHLEE IRELAND Physician: | | | TAYA : 1990 Age: 22 Sex: F Unit #: [id number] | | | Exam Date: 10/03/12 [place] [facility] [place] | | Report #: [id number] Page: | | | %(RAD)RES..mtdd.print.filter("pg") of %(RAD) | | | RES..mtdd.print.filter("tpg") | | | | | | Accession Number: [id number] | | | E C H O C A R D I O G R A P H Y R E P O R T | | | HEIGHT: 5'7" WEIGHT: 205# | | | ASSESSMENT MANAGER: AP YANG DR: CASI BEAN DR: | [...] Transcribed Date/Time: 10/03/2012 12:03 | | | Director Employee Communications: <<Signature on File>> | | | S | | | Chaim Garcia MD10/03/12 1271 <Electronically signed by S S. | | | Casi MOCK> S Chaim Garcia MD 10/03/12 3807 | | | Director Employee Communications: Jia Kexyxeyclxfrw32/20/13 [address] | | | Chaim Garcia MD | | + + + + + + + + | Performing | Address | City/State/Zipcode | Phone Number | | Organization | | | | + + + + + | [facility] | [address] | [place] | [phone] | | [facility] | | [address] | | | - IMAGING | | | | + + + + + documented in this encounter Visit Diagnoses + + | Diagnosis | + + | Palpitations | + + | Other chest pain | + + documented in this encounter
--- OUTSIDE RECORDS SUMMARY | ~2020-04-14 | XMS | Encounter Summary ---
Demographics + + + | Address | [address] | | | [place] [address] | + + + | Home Phone | | + + + | Preferred Language | Unknown | + + + | Marital Status | Single | + + + | Pentecostalism Affiliation | Unknown | + + + | Race | White | + + + | Ethnic Group | Not or | + + + Author + + + | Author | [facility] | | | and [place] | + + + | Organization | [facility] | | | [...] [place] | | | | | [address] | | + + + + + Care Team Providers + +------+ + | Care Cosmetologist Apprentice Name | Role | Phone | + [...] [address] | | | | | [place], | [address] [place] | | | | | [place] [address] | [place] [address] | | | | | [phone] | [phone] | | | | | | | [...] + | [facility] | [address] | [place] | [phone] | | [facility] | | [address] | | | - LABORATORY | | | | + + + + + | [facility] | [address] | [place] | | | [facility] | | [id number] [place] [address] | | | - LABORATORY | | | | + + + + + documented in this encounter Visit Diagnoses Not on filedocumented in this encounter"
--- OUTSIDE RECORDS SUMMARY | ~2020-04-14 | XMS | Encounter Summary ---
Demographics + + + | Address | [address] | | | [place] [address] | + + + | Home Phone | | + + + | Preferred Language | Unknown | + + + | Marital Status | Single | + + + | Jain Affiliation | Unknown | + + + | Race | White | + + + | Ethnic Group | Not or | + + + Author + + + | Author | [facility] | | | and [place] | + + + | Organization | [facility] | | | and [...] [place] | | | | | [address] | | + + + + + Care Team Providers + +------+ + | Care Key Attendant Name | Role | Phone | + [...] | Palpitations | MD Chaim | [address] | | | | | Other | [address] [place] | | | | | chest pain | St [place] | [place], [place] | | | | | Procedures | [place], [place] | [address] | | | | | ECHO | [address] | Phone: | | | | | Complete | Phone: | | | | | | | [phone] | Fax: | | | | | | Fax: | | | | | | | [phone] | | +--------+--------+ + + + + Reason for Visit + + + | Reason | Comments | + + + | Palpitations | Initial Consultation | + + + Encounter Details +--------+---------+ + + + | Date | Type | Department | Care Team | Description | +--------+---------+ + + + | 09/20/ | Office | [facility] | Vernon Garcia | Palpitations | | 2012 | Visit | CARDIOLOGY [address] | MD Chaim [address] | (Primary Dx); Other | | | | [place], | [address] [place] | chest pain; Tobacco | | | | [place] [address] | [place] [address] | use disorder | | | | [phone] | [phone] | | | | | | | [...] extended periods when she is not worki [employer]. She also admits to chronic problems with nausea and borderline diarrhea/loose bowels, bu t denies problems with vomiting. She denies use of any gcvl-mlj-mwgpjop supplements for weig ht loss, including any [...] 2 episodes of syncope years ago in [facility] which was attributed to dehydration, and was [...] 0 Years of Education: N/A Occupational History [employer] Social History Main Topics Smoking status: Current [...] 63, no significant abnormal ities. Holter monitor [facility] - report describes occasional PACs and [...] monitor, and we'll schedule her to undergo [facility] event monitor as well. I've encouraged the [...] recently cut down her smoking. Plan: 1. [email or web address] event monitor. 2. Echocardiogram. 3. Treadmill stress [...] Performed At | + + + | [facility] | [place] | | Department [facility] [address] [facility], [place] | [facility] | | [ rep [address]] [ rep [facility] | | st zip] Signed | - IMAGING | | | | | Patient Name: ASHLEE IRELAND Physician: | | | ERIBERTO. : 1990 Age: 22 Sex: F Unit #: [id number] | | | Exam Date: 10/03/12 Location: [facility] | | | Report #: [id number] Page: | | | %(RAD)RES..mtdd.print.filter("pg") of %(RAD) | | | RES..mtdd.print.filter("tpg") | | | | | | Accession Number: [id number] | | | E C H O C A R D I O G R A P H Y R E P O R T | | | HEIGHT: 5'7" WEIGHT: 205# | | | DIRECTIONAL DRILLER: AP REFERRING DR: JOSE BEAN DR: | [...] Transcribed Date/Time: 10/03/2012 12:03 | | | Roll Changer: SOULEYMANE <<Signature on File>> | | | S | | | Chaim Garcia MD10/03/12 1643 <Electronically signed by Jorge L Coats. | | | Jose MOCK> S Chaim Garcia MD 10/03/12 1149 | | | Roll Changer: [employer] Jehalhoedyypw76/20/13 1206 S | | | Chaim Garcia MD | | + + + + + + + + | Performing | Address | City/State/Zipcode | Phone Number | | Organization | | | | + + + + + | [facility] | [address] | [place] | [phone] | | [facility] | | [address] | | | - IMAGING | | | | + + + + + documented in this encounter Visit Diagnoses + + | Diagnosis | + + | Palpitations - Primary | + + | Other chest pain | + + | Tobacco use disorder | + + documented in this encounter
[~2020-04-14 00:01] MED LIST: PERCOCET 5-3251 EACH PO; PROMETHAZINE HC25 M1 PO
[2020-04-15] MEDS ORDERED: EFFEXOR XR75 MG PO (02:43)
[2020-04-15] MEDS ORDERED: CYCLOBENZAPRINE10 MG PO (02:44)
[2020-04-15] MEDS ORDERED: PRENATAL VITAM1 EACH PO (02:44)
[2020-04-15] MEDS ORDERED: NOVOLIN N100 UNIT/2 SUB-Q ×2 (02:47→02:48)
[2020-04-15] MEDS ORDERED: INSULIN AS100 UNIT/1 SUB-Q (02:51)
[2020-04-15] MEDS ORDERED: NOVOLOG100 UNIT/2 SUB-Q ×2 (02:52→02:54)
[2020-04-15] MEDS ORDERED: STOOL SOFTENER100 MG PO (02:55)
[2020-04-15] MEDS ORDERED: TUMS200 MG PO (02:56)
[2020-04-15] MEDS ORDERED: LO-DOSE ASPIRIN81 M1 PO (02:59)
--- NOTE | 2020-04-15 19:44 | PR ---
[facility] [address] [place], [place] [address] Signed Progress Notes IP Datetime Report Generated by SALEEM: 04/15/2020 19:44 PROGRESS NOTES: [id number] Impression: Normal Progression of Labor; Reassuring Heart Rate Procedures: Sterile Vag Exam Plan: Continue Present Management; Anticipate Vaginal Delivery Informed Consent Obtain: Vaginal Delivery; Section Delivery; Risks, Benefits and Alternatives Discussed Other Informed Consents: AROM, FSE/IUPC VITAL SIGNS: [id number] Vital Signs: Reviewed; Within Normal Limits VS Notable Details: Glucose 109 EXAM: [id number] Dilatation: 10.0 Effacement: 100 Station: 0 Contractions: Rare MEMBRANES: [id number] Membranes Status: Bulging Comments: Pt seen and examined. Doing well. Comfortable w/ epidural but starting to feel some rectal pressure. We reviewed 2nd stage of labor in detail. We reviewed prior discussions regarding risk of shoulder dystocia, maneuvers employed should a dystocia be encountered, and possible outcomes. Again adequate pelvis appreciated. Reviewed recent glucose level normal. All questions answered to best of my ability. Pt and mother understand and desire to continue with trial of labor. FETUS A: [id number] FHR Baseline: 130 Variability: Moderate 6-25bpm Accelerations: 15X15 Decelerations: None FHR Category: Category I Presentation: Vertex Comments on Fetus A: No evidence of metabolic acidosis FETUS B: [id number] Signing Physician: Desi Andrea DO Copies: *Electronically Signed* 04/15/201943 DESI ANDREA DO PATIENT NAME: ASHLEE BALES PROGRESS NOTE DATE OF : [birth year] PHYSICIAN: DESI ANDREA DO RPT #: [id number] REPORT IS CONFIDENTIAL AND NOT TO BE RELEASED WITHOUT AUTHORIZATION [address] [place] [address] Signed ~ *Electronically Signed* 04/15/20 1944 DESI ANDREA DO PATIENT NAME: ASHLEE BALES PROGRESS NOTE DATE OF : [birth year] PHYSICIAN: DESI ANDREA DO RPT #: [id number] REPORT IS CONFIDENTIAL AND NOT TO BE RELEASED WITHOUT AUTHORIZATION
--- NOTE | 2020-04-16 11:02 | PR ---
[facility] [address] [facility] [place], [place] [address] Signed PP Progress Notes Datetime Report Generated by CPN: 04/16/2020 11:02 SUBJECTIVE: [id number] Pain: Within Normal Limits Nausea/Vomiting: Denies Flatus: Yes Bowel Movement: No Vital Signs: [id number] Vital Signs: Reviewed; Within Normal Limits EXAM: Ongoing Cardiovascular: Normal Respiratory: Normal Abdomen/Uterus: Normal Lochia: Normal Vulva/Perineum: Not Done Breasts: Not Done CVA Tenderness: Normal Extremities: Normal Incision: Not Applicable Progress: Not Applicable Exam Comments: Fundus firm nontender IMPRESSION/PLAN/PROCEDURES: [id number] Impression: Normal Progression Plan: Continue Present Management Progress Notes: Pt doing well. No concerns. Ambulating, voiding, and tolerating full diet. Pain and lochia minimal. Bottlefeeding. Anticipate d/c home tomorrow. Signing Physician: Desi Andrea DO Copies: ~ *Electronically Signed* 04/16/20 1102 DESI ANDREA DO PATIENT NAME: BALESASHLEE PROGRESS NOTE DATE OF : [birth year] PHYSICIAN: DESI ANDREA DO RPT #: [id number] REPORT IS CONFIDENTIAL AND NOT TO BE RELEASED WITHOUT AUTHORIZATION
--- NOTE | 2020-04-17 17:11 | PR ---
[facility] [address] [facility] [place], [place] [address] Signed PP Progress Notes Datetime Report Generated by CPGaby: 04/17/2020 17:11 SUBJECTIVE: [id number] Pain: Within Normal Limits Nausea/Vomiting: Denies Flatus: Yes Bowel Movement: Yes Vital Signs: [id number] Vital Signs: Reviewed Notable Details: No severe range BPs EXAM: Ongoing Cardiovascular: Normal Respiratory: Normal Abdomen/Uterus: Normal Lochia: Normal Vulva/Perineum: Not Done Breasts: Normal CVA Tenderness: Normal Extremities: Normal Incision: Not Applicable Progress: Not Applicable Exam Comments: Fundus firm but difficult to palpate due to body habitus IMPRESSION/PLAN/PROCEDURES: [id number] Impression: Normal Progression Plan: Discharge Progress Notes: Pt doing well. Ambulating, voiding, and tolerating full diet. Pain and lochia minimal. Bottle feeding. No fevers/chills/abnormal discharge. Mildly elevated BPs, but no severe range BPs, CLEMENS, RUQ, or visual changes. Desires d/c home today. Reviewed d/c instructions in detail. Signing Physician: Desi Andrea DO Copies: ~ *Electronically Signed* 04/17/20 1208 DESI ANDREA DO PATIENT NAME: ASHLEE BALES PROGRESS NOTE DATE OF : [birth year] PHYSICIAN: DESI ANDREA DO RPT #: [id number] REPORT IS CONFIDENTIAL AND NOT TO BE RELEASED WITHOUT AUTHORIZATION
== END 2020-04-17 18:15 | disposition home or self-care (01) | DRG 806 ==
LOC: FBC 00:01
PROVIDERS: ADMIT Obstetrics & Gynecology; ATTEND Obstetrics & Gynecology
PROC: 10E0XZZ Delivery of Products of Conception, External Approach (ICD-10-PCS; principal; 2020-04-15)
PROC: 0KQM0ZZ Repair Perineum Muscle, Open Approach (ICD-10-PCS; 2020-04-15)
PROC: 0UQMXZZ Repair Vulva, External Approach (ICD-10-PCS; 2020-04-15)
PROC: 10907ZC Drainage of Amniotic Fluid, Therapeutic from Products of Conception, Via Natural or Artificial Opening (ICD-10-PCS; 2020-04-15)
PROC: 3E0P7VZ Introduction of Hormone into Female Reproductive, Via Natural or Artificial Opening (ICD-10-PCS; 2020-04-15)
PROC: 00HU33Z Insertion of Infusion Device into Spinal Canal, Percutaneous Approach (ICD-10-PCS; 2020-04-15)
PROC: 3E0R3BZ Introduction of Anesthetic Agent into Spinal Canal, Percutaneous Approach (ICD-10-PCS; 2020-04-15)
DX: O24.424 Gestational diabetes mellitus in childbirth, insulin controlled (principal); O10.92 Unspecified pre-existing hypertension complicating childbirth; Z37.0 Single live birth; O99.324 Drug use complicating childbirth; Z3A.39 39 weeks gestation of pregnancy; O99.334 Smoking (tobacco) complicating childbirth; F17.210 Nicotine dependence, cigarettes, uncomplicated; O36.63X0 Maternal care for excessive fetal growth, third trimester, not applicable or unspecified; O99.214 Obesity complicating childbirth; E66.01 Morbid (severe) obesity due to excess calories; O99.824 Streptococcus B carrier state complicating childbirth; F12.90 Cannabis use, unspecified, uncomplicated; O69.81X0 Labor and delivery complicated by cord around neck, without compression, not applicable or unspecified; O99.344 Other mental disorders complicating childbirth; F32.9 Major depressive disorder, single episode, unspecified; O70.1 Second degree perineal laceration during delivery; O71.82 Other specified trauma to perineum and vulva; Z88.5 Allergy status to narcotic agent; Z79.899 Other long term (current) drug therapy
CPT/HCPCS: 36415; 85027; A9270; J2540; J2590; J2795; J3010

== ENCOUNTER 2021-08-29 16:31 | Emergency (ER) | payer OTHER ==
[~2021-08-29] VITALS: Ht 182.9 cm; Wt 149.7 kg
[~2021-08-29 16:31] MED LIST changes: +CYCLOBENZAPRINE10 MG PO; +EFFEXOR XR75 MG PO; +INSULIN AS100 UNIT/1 SUB-Q; +LO-DOSE ASPIRIN81 M1 PO; +NOVOLIN N100 UNIT/2 SUB-Q; +NOVOLOG100 UNIT/2 SUB-Q; +PRENATAL VITAM1 EACH PO; +STOOL SOFTENER100 MG PO; +TUMS200 MG PO
== END 2021-08-29 19:40 | disposition home or self-care (01) ==
LOC: ED 16:31
DX: U07.1 COVID-19 (principal); F17.200 Nicotine dependence, unspecified, uncomplicated; Z88.5 Allergy status to narcotic agent; Z79.4 Long term (current) use of insulin; Z79.82 Long term (current) use of aspirin; Z79.899 Other long term (current) drug therapy
CPT/HCPCS: 99284

== ENCOUNTER 2024-03-27 18:18 | Emergency (ER) | payer OTHER ==
[~2024-03-27] VITALS: Ht 182.9 cm; Wt 130.9 kg
--- OUTSIDE RECORDS SUMMARY | 2024-03-27 18:19 | XMS ---
PreManage Notification: ASHLEE BALES Security Design Checker Events No recent Security Events currently on file CRITERIA MET - PDM CARE PROVIDERS -, [facility] Dentist: Automobile Parker [facility] PHONE: [phone] -[place]- Dentist: Automobile Parker Current [facility] PHONE: [phone] CASE HOU Physician Property Coordinator Current PHONE: [phone] Kayla has no Care Guidelines for this patient. E.D. VISIT COUNT (12 MO.) 1 [facility] TOTAL 1 NOTE: Visits indicate total known visits. ED/UCC VISIT TRACKING (12 MO.) 03/27/2024 18:18 [facility] [place] TYPE: Emergency COMPLAINT: - CHEST PAIN INPATIENT VISIT TRACKING (12 MO.) No inpatient visits to display in this time frame [email or web address]
[2024-03-27 18:46] LABS: BASOPHILS 0.5 % (0-2); EOSINOPHILS 4.2 % (0-6); HEMATOCRIT 41.4 % (35.0-50.0); HEMOGLOBIN 14.1 g/dL (12.0-18.0); LYMPHOCYTES 29.5 % (24-44); MCH 29.7 (27-36); MCV 87.3 fl (81-99); MONOCYTES 5.7 % (0-12); NEUTROPHILS 60.1 % (39-80); PLATELET COUNT 282 K/uL (140-440); RBC 4.75 M/ul (4.3-5.7); RDW 13.6 (10.5-15.0)
[2024-03-27 19:03] LABS: ALBUMIN 3.7 g/dL (3.4-5.0); ALBUMIN/GLOBULIN RATIO 0.95 (1.1-2.4); ALKALINE PHOSPHATASE 72 U/L (46-116); ALT (SGPT) 29 U/L (14-59); ANION GAP 16.3 (7-21); AST (SGOT) 12 U/L (15-37); BILIRUBIN, TOTAL 0.4 ng/dL (0.2-1.0); BUN/CREATININE RATIO 13.51 (6.0-28.6); CALCIUM 9.2 mg/dL (8.5-10.1); CARBON DIOXIDE 25 mmol/L (21-32); CHLORIDE 100 mmol/L (98-107); CREATININE, SERUM 0.74 mg/dL (0.55-1.02); GLOMERULAR FILTRATION RATE,EST 110 mL/min (>60); MAGNESIUM 1.9 mg/dL (1.8-2.4); POTASSIUM 4.3 mmol/L (3.5-5.1); PROTEIN, TOTAL 7.6 g/dL (6.4-8.2); UREA NITROGEN 10 mg/dL (7-18)
[2024-03-27] MEDS ORDERED: ONDANSETRON 4 MG HOME.PACK SL ONE (19:45)
[2024-03-27 20:01] VITALS: BP 117/83
--- NOTE | 2024-03-27 21:41 | EKG ---
[facility] [address] [facility] [place] [address] Signed Sinus tachycardia Otherwise normal ECG No previous ECGs available Confirmed by Dom Nelson MD () on 03/27/2024 9:40:55 PM Electronically Signed By: DOM NELSON MD 03/27/242140 PATIENT NAME: ASHLEE BALES Electrocardiogram DATE OF : [birth year] PHYSICIAN: DOM NELSON MD REPORT #: [id number] REPORT IS CONFIDENTIAL AND NOT TO BE RELEASED WITHOUT AUTHORIZATION
== END 2024-03-27 20:00 | disposition home or self-care (01) ==
LOC: ED 18:18
PROVIDERS: Emergency Medicine
DX: R07.89 Other chest pain (principal); F17.200 Nicotine dependence, unspecified, uncomplicated; Z88.5 Allergy status to narcotic agent; Z79.899 Other long term (current) drug therapy
CPT/HCPCS: 36415; 71045; 80053; 83735; 84484; 85025; 93005; 93010; 99285-25; A9270

== ENCOUNTER 2025-04-08 08:20 | Emergency (ER) | payer OTHER ==
[~2025-04-08] VITALS: Ht 172.7 cm; Wt 127.0 kg
[~2025-04-08 08:20] MED LIST changes: +ASHLYNA 0.15-01 EACH PO; +DEXTROAMP-AMPHE25 MG PO; +LIPITOR40 MG PO; +LIRAGLUTID0.6 MG/0.1 SUB-Q; +LISINOPRIL10 MG PO; +OMEPRAZOLE20 MG PO; +OXYBUTYNIN CHLO15 MG PO; +VENLAFAXINE HC150 M1 PO
--- OUTSIDE RECORDS SUMMARY | 2025-04-08 08:25 | XMS ---
PreManage Notification: ASHLEE BALES Security Hydrography Teacher Events No recent Security Events currently on file CRITERIA MET - [facility] - 2 Visits in 30 Days CARE PROVIDERS -[facility] Dentist: Yarn Texture Machine Operator [facility] PHONE: [phone] -[place]- Dentist: Yarn Texture Machine Operator [facility] PHONE: [phone] Kayla has no Care Guidelines for this patient. [place] VISIT COUNT (12 MO.) 2 [facility] TOTAL 2 NOTE: Visits indicate total known visits. ED/UCC VISIT TRACKING (12 MO.) 04/08/2025 08:21 [facility] [address] [facility] TYPE: Emergency COMPLAINT: - VOMITING 03/26/2025 20:40 [facility] [place] TYPE: Emergency COMPLAINT: - VOMITING INPATIENT VISIT TRACKING (12 MO.) 03/27/2025 12:40 [facility] [place] TYPE: Medical Surgical COMPLAINT: - ACUTE PANCREATITIS DIAGNOSES: - Acquired absence of other organs - Acquired absence of other specified parts of digestive tract - Acute pancreatitis without necrosis or infection, unspecified - Allergy status to other drugs, medicaments and biological substances - Calculus of kidney - Cannabis use, unspecified, uncomplicated - Hyperlipidemia, unspecified - Nicotine dependence, cigarettes, uncomplicated - Other terminal superintendent (current) drug therapy - Other specified disorders of adrenal gland - Tobacco abuse counseling - Type 2 diabetes mellitus without complications [email or web address]
[2025-04-08 08:35] LABS: BASOPHILS 1.0 % (0.1-1.2); EOSINOPHILS 6.0 % (0.7-5.8); LYMPHOCYTES 22.1 % (19.3-51.7); MCH 30.4 PG (25.6-32.2); MCHC 34.1 g/dL (32.2-35.5); MCV 89.0 fL (79.4-94.8); MONOCYTES 5.6 % (4.7-12.5); NEUTROPHILS 64.8 % (34.0-71.1); RBC 4.64 M/uL (3.93-5.22)
[2025-04-08 08:51] LABS: ALT (SGPT) 31.0 U/L (14-59); AST (SGOT) 14.0 U/L (15-37); GLOMERULAR FILTRATION RATE,EST 111.0 mL/min (>60); PROTEIN, TOTAL 7.6 g/dL (6.4-8.2); UREA NITROGEN 11.0 mg/dL (7-18)
[2025-04-08] MEDS ORDERED: PERCOCET 5-3251 EACH PO (09:13)
[2025-04-08] MEDS ORDERED: ONDANSETRON ODT4 MG PO (09:13)
[2025-04-08 09:41] VITALS: BP 133/90
== END 2025-04-08 09:42 | disposition home or self-care (01) ==
LOC: ED 08:20
PROVIDERS: Emergency Medicine
DX: R10.9 Unspecified abdominal pain (principal); E11.9 Type 2 diabetes mellitus without complications; F17.200 Nicotine dependence, unspecified, uncomplicated; Z88.5 Allergy status to narcotic agent; Z88.8 Allergy status to other drugs, medicaments and biological substances; Z79.85 Long-term (current) use of injectable non-insulin antidiabetic drugs; Z79.899 Other long term (current) drug therapy
CPT/HCPCS: 36415; 80053; 83690; 84703; 85025; 96374; 96376; 99284-25; J2405